=== PATIENT | female | born 1965 | race Two or more races ===

== ENCOUNTER 2025-10-14 03:27 | Inpatient (IN) | payer MEDICAID, OTHER ==
[~2025-10-14] VITALS: Ht 160 cm; Wt 65.0 kg
[2025-10-14] VITALS (20 sets, daily range): BP systolic 81–164; BP diastolic 48–86; PULSE 79–99; RESP 15–28; TEMP 97.4–98.4; O2SAT 93–100
--- NOTE | 2025-10-14 03:34 | ELECTROCARDIOGRAPH REPORT ---
[facility] Test Date: 2025-10-14 Test Time: 03:33:21 Pat Name: SENTHIL VAZQUEZ Department: EMERGENCY ROOM Room: [place] [address] Gender: F [employer]: RAEANN : 1965 Requested By: SAGE LIGHT Order Number: [id number] Reading MD: Dr. Domingo Blackwood Measurements Intervals [place] Rate: 87 P: -13 DC: 202 QRS: -24 QRSD: 91 T: 35 QT: 357 QTc: 430 Interpretive Statements Sinus rhythm Inferior infarct, old Lateral leads are also involved Electronically Signed On 10-15-2025 21:14:[address] Domingo Blackwood Please click the below link to view image of tracing.
--- NOTE | 2025-10-14 03:57 | Physician Documentation ---
History of Present Illness ~ Chief Complaint: Chest Pain Stated Complaint: CARDIAC ISSUES Time Seen by MD: 03:46 HPI Patient presents to the emergency room as a transfer from [facility] for concerns for chest pain. Patient was having chest pain and troponi ns were negative x3 at sending facility however that has some EKG changes that were concerning. They contacted Dr. Patterson, contract loader, who recommended transfer for further workup for chest pain. Troponins were negative x3 however giving the concerning story along with EKG changes Lovenox was administered. Medication Reconciliation Allergies: Coded Allergies: Sulfa (Sulfonamide Antibiotics) (Verified Allergy, Mild, HIVES, 10/14/25) codeine (Verified Allergy, Mild, HIVES, N/V, 10/14/25) Review of Systems ROS All review of systems negative except as per HPI Physical Exam Vital Signs: Temperature: 98.5, Source: Oral, Heart Rate: 98, Respiratory Rate: 14, BP: 121/69, Pulse Oximetry: 94, Weight: 65.000 Oxygen Flow Rate: 0 Physical Exam General: Patient is awake, alert, oriented x4 in no acute distress Head: Normocephalic and atraumatic. Eyes: Conjunctival normal. EOMI. PERRL. ENT: Mucous membranes moist. Neck: Supple, trachea is midline. Chest: Clear to auscultation bilaterally without rales, rhonchi, or wheezes. There is no accessory muscle use or retractions. Cardiac: RRR without murmurs, gallops, or rubs. Progress Results/Orders Results/Orders Orders - DEEJAY GIBSON MD Cbc/Diff (10/14/25 03:47) BMP (10/14/25 03:47) Hs Troponin I W Calculations (10/14/25 03:47) Completed Orders - DEEJAY GIBSON MD Electrocardiogram (10/14/25 03:30) Vital Signs 10/14/25 03:31 Temp 98.5 Pulse 98 Resp 14 B/P (MAP) 121/69 Pulse Ox 94 O2 Flow Rate 0 EKG/XRAY/CT/US/VASC/MRI EKG : Additional Comment EKG interpreted by myself shows time of 0333, rate 87, sinus rhythm, left axis deviation, nonspecific ST-T changes Medical Decision Making Additional information obtaine: other Findings Patient presents to the emergency room with chest pain with EKG changes sent from [facility]. We will admit patient for further analysis/investigation. Heart Score: 5 Differential Dx:Considerations: Include: angina, aortic dissection, chest wall pain, cholelithiasis, CHF, costochondritis, esophageal reflux/spasm, gastritis, herpes zoster, myocardial infarction, pericarditis, pleuritis, pancreatitis, pneumonia, pneumothorax, pulmonary embolus, other Departure Admitted to Inpatient Unit: yes, to hospitalist Impression: Primary Impression: Chest pain Condition: Guarded Referrals: NO PRIMARY CARE PROVIDER (PCP) Critical Care Note Total Time (mins): 30 Critical Care Note The very real possibility of a deterioration of this patient's condition required the highest level of my preparedness for sudden, emergent intervention. I provided critical care services, which included medication orders, frequent reevaluations of the patient's condition and response to treatment, ordering and reviewing test results, and discussing the case with various consultants. Excludes time spent performing separately billable procedures. The critical care time associated with the care of the patient was 30 minutes not counting pr ocedures Signature Scribe Signature: No scribe Attestation: The note accurately reflects work and decisions made by me.Deejay Gibson MD 10/14/25 03:57 DEEJAY GIBSON MD Oct 14, 2025 03:57
[2025-10-14] MEDS ORDERED: magnesium sulf-water 4G/100mL 100 ML IV PRN (04:20)
[2025-10-14] MEDS ORDERED: magnesium Cl slow-release 64mg tablet PO PRN (04:20)
[2025-10-14] MEDS ORDERED: magnesium sulf-water 2g/50mL 50 ML IV PRN (04:20)
[2025-10-14] MEDS ORDERED: potassium Cl 40MEQ/1/2NS 520ml 520 ML IV PRN (04:20)
[2025-10-14] MEDS ORDERED: potassium Cl 20 mEq SR tablet PO PRN ×2 (04:20)
[2025-10-14] MEDS ORDERED: mag hydrox/Alum hydrox/simeth 30ml oral suspension PO PRN (04:20)
[2025-10-14] MEDS ORDERED: HEPARIN DRIP-CARDIAC**PHARMACIST-TO-DOSE IV ONE (04:20)
[2025-10-14] MEDS ORDERED: magnesium hydroxide 30ml (MOM) UD suspension PO PRN (04:20)
[2025-10-14] MEDS ORDERED: ondansetron/PF 4mg/2ml inj IV PRN (04:20)
--- NOTE | 2025-10-14 04:32 | HISTORY AND PHYSICAL-Residence ---
History & Physical Providers to CC Resident Creating Document: JONATHAN RODAS, RES CC: KERMIT MISTRY MD ~ History of Present Illness Reason for Admit\Complaint: chest pain History of Present Illness 60-year-old female with PMH of HTN HLD presented the ED as a transfer from [facility] in view of substernal chest pain that started two days ago. Patient states that she has severe chest pain that feels like her bones breaking with a severity of 10/10 present in the substernal location with radiation to the tongue neck in between the scapula. Patient states the chest pain is worse on exertion does not relieve with rest. Patient had received nitroglycerin, nitro paste and morphine that has minimal relief. Patient denies decreasing chest pain or leaning forward. Patient has increased chest pain on taking deep inspiration. Patient's chest pain associated with shortness of breaths and nausea. Patient denies diaphoresis palpitations dizziness loss of consciousness. At [facility], patient received two tablets of nitro, nitro paste and morphine, and one full dose of aspirin. Patient initially received Lovenox at full dose. Troponins at the outside hospital has been negative The EKG at [facility] showed ischemic changes in the lateral leads. Patient's D-dimer HD outside hospital is minimally elevated and corrected for age to be normal Allergies: Coded Allergies: Sulfa (Sulfonamide Antibiotics) (Verified Allergy, Mild, HIVES, 10/14/25) codeine (Verified Allergy, Mild, HIVES, N/V, 10/14/25) Past Medical History Past Medical History HTN HLD Asthma GERD Bilateral sciatica Allergic rhinitis Bilateral knee pain Obesity Osteoarthritis Rheumatoid arthritis Sleep apnea Past Surgical History Surgical History Comment Right knee replacement Past Social History Social History Comment Patient denies smoking cigarettes, marijuana, illicit drugs, alcohol use Primary care doctor is at [facility] Constitutional: No fever, chills, dizziness, weight gain or loss Eyes: No pain, erythema, discharge, blurring of vision ENT: No sore throat, epistaxis, tinnitus Cardiovascular: reports Shortness of breath. Chest pressure, chest discomfort, no palpitations, syncope, lower extremity edema, paroxysmal nocturnal dyspnea Respiratory: No Shortness of breath and cough present, No hemoptysis Gastrointestinal: Normal appetite. No nausea, vomiting, diarrhea, constipation, hematemesis, abdominal pain, bloating, melena or fresh blood Musculoskeletal: No chronmic edema. Integumentary: No change in skin, hair, nails. No swelling, bruising, abrasions Neurologic: No headache, neck pain, numbness or tingling of the extremities, weakness Psychiatric: No delusions, depression, loss of interest in normal activity or change in sleep pattern, hallucinations, suicidal ideations Endocrine: No fatigue, weakness, polydipsia, polyuria, change in appetite, heat or cold intolerance, sweating, dry skin Exam Vitals: Vital Signs Date Time Temp Pulse Resp B/P (MAP) Pulse Ox O2 Delivery O2 Flow Rate FiO2 10/14/25 04:06 10/14/25 03:31 98.5 98 14 94 0 General: General: Alert, awake, oriented, not in acute distress HEENT: PERRLA, no icterus, pallor, lymphadenopathy, carotid bruit Respiratory system: Bilateral vesicular breath sounds heard, no adventitious breath sounds CVS: S1-S2 heard, no murmurs/rubs/gallop GI: Soft, nontender, no organomegaly, no guarding/rigidity, bowel sounds present Neuro: No focal neurological deficits present Mental status exam: alert and consciousness, orientation, memory, speech - Cranial nerve test: Cranial nerves 2-12 intact - Motor system: Nutrition, Tone 3+, Power 5/5, no involuntary movements - Sensory system: Intact - Reflex testing: Biceps, triceps and knee reflexes 2+ - Cerebellar: Normal Extremities: A surgical scar present in the right knee, tenderness of the right lower extremity Skin: Warm and dry, dilated veins of the bilateral lower extremities, multiple petechiae present in bilateral upper extremities Advance Care Planning Advanced Care plannin - 30 Minutes (I spent 20 minutes discussing various resuscitative measures and the patient decided to be DNR) Additional Plan Assessment: A 60-year-old female with a past medical history of HTN HLD presented to the ED as a transfer in view of characteristic cardiac chest pain and ischemic changes with no elevation of troponins. Patient is admitted for the evaluation and management of unstable angina, ACS work up Plan: Unstable angina ACS workup EKG: ST changes in one, aVL, V5 V6 Follow up with echo, lipid panel, A1c Patient received full dose of Lovenox at the outside hospital past midnight 70 mg Lovenox subcutaneous b.i.d. Patient received one full dose of aspirin at the outside hospital, started on aspirin 81 mg Patient is started on 80 mg of atorvastatin Nitroglycerin 0.4 mg sublingually p.r.n. for chest pain, nitro patch, morphine for intractable pain Cardiology consult in a.m., possible cardiac catheterization Possible new onset heart failure Chest x-ray: Bilateral pleural effusions with cardiomegaly IV Lasix 40 mg one time dose given Titrate Lasix as required Consider optimization with GDM T Follow up with echo Possible DVT Although the D-dimer is mildly elevated and corrected for age Patient has tenderness of right lower extremity concerning for DVT Follow up with ultrasound of the right lower extremity Mild leukocytosis Pneumonia, less likely Probably reactive Follow up with procalcitonin, COVID, flu test, urinalysis HTN Currently soft blood pressures Hold antihypertensives HLD Follow up with lipid panel Continue atorvastatin 80 mg once daily Asthma, not in acute exacerbation DuoNeb p.r.n. q.4h Osteoarthritis Rheumatoid arthritis Outpatient follow up Pain management GERD IV Protonix 40 mg daily Possible obstructive sleep apnea Outpatient sleep study CPAP at night daily Code status: DNR Diet: NPO DVT prophylaxis: Lovenox Disposition: Admit to PCU, follow up with echo Jonathan Rodas MD Internal Medicine, PGY 2 Pt was seen and discussed with the resident team Agree with assessment and plan thank you Date of Service: Oct 14, 2025 Billing Provider: KERMIT MISTRY MD, SIVA, RES Oct 14, 2025 04:32 KERMIT MISTRY MD Oct 14, 2025 18:13
[2025-10-14 04:42] LABS: MEAN PLATELET VOLUME 6.9 FL (7.4-10.4); RED CELL DISTRIBUTION WIDTH 14.5 % (11.5-14.5)
[2025-10-14 04:46] LABS: CREATININE 0.83 MG/DL (0.40-0.90); TOTAL CARBON DIOXIDE 25.3 MMOL/L (24-32); eCRCL 58 ML/MIN; eGFR 70 ML/MIN
[2025-10-14 04:48] LABS: APTT 34 SECONDS (22-32); INR 1.0 INR
--- NOTE | 2025-10-14 04:56 | RADIOLOGY REPORT ---
CHEST RADIOGRAPH INDICATION: acs TECHNIQUE: Single frontal view of the chest was obtained COMPARISON: XR CHEST 2 VIEWS on DOS: 10/13/25 FINDINGS: Lines and Tubes: None Lungs: Right basilar atelectasis. No evidence of focal consolidation. Pleura: No effusion. No pneumothorax. Cardiomediastinal contours: Cardiomegaly. Bones: Unremarkable IMPRESSION: 1. Cardiomegaly. 2. Right basilar atelectasis.
[2025-10-14] MEDS ORDERED: ipratropium/albuterol 3ml nebule NEB PRN (05:35)
[2025-10-14] MEDS: furosemide 10 MG/1 ML 10ml inj IV ONE (06:14)
[2025-10-14] MEDS: K and/or MAG REPLACEMENT MC SCH (08:00)
[2025-10-14] MEDS: docusate sod 100mg capsule PO SCH (09:09)
[2025-10-14] MEDS: aspirin 81mg, enteric-coated 1 TAB TABLET.DR PO SCH (09:09)
--- NOTE | 2025-10-14 09:14 | VASCULAR REPORT ---
TECHNIQUE: Real-time ultrasound imaging, with color Doppler and compression of the right common femoral vein, femoral vein, greater saphenous vein, and popliteal vein. INDICATION: Right leg pain COMPARISON: None FINDINGS: There is normal compressibility and flow augmentation in all of the imaged deep veins. There are no filling defects. IMPRESSION: No evidence of DVT in the right lower extremity
[2025-10-14 09:39] LABS: PRO BRAIN NATRIURETIC PEPTIDE 614 PG/ML (0-125)
[2025-10-14] MEDS ORDERED: regadenoson 0.4mg/5ml syringe IV PRN (11:55)
[2025-10-14] MEDS ORDERED: metoprolol tartrate 1mg/ml inj IV PRN (11:55)
[2025-10-14] MEDS ORDERED: aminophylline 250mg/10ml inj. IV PRN (11:55)
[2025-10-14] MEDS ORDERED: enoxaparin 30mg/0.3ml syringe SUBCUT SCH ×2 (12:00→14:06)
[2025-10-14] MEDS ORDERED: enoxaparin 40mg/0.4ml syringe SQ SCH (12:00)
[2025-10-14] MEDS: enoxaparin 40mg/0.4ml syringe SUBCUT SCH (15:46)
[2025-10-14] MEDS: enoxaparin 30mg/0.3ml syringe SUBCUT SCH (15:47)
--- NOTE | 2025-10-14 18:33 | ELECTROCARDIOGRAPH REPORT ---
[facility] Test Date: 2025-10-14 Test Time: 18:31:43 Pat Name: SENTHIL VAZQUEZ Department: [facility] 3S Patient ID: [facility]-[id number] Room: [place] [address] A Gender: F Company Marker: : 1965 Requested By: LUTHER HORNER Order Number: [id number] Reading MD: Dr. ANAHI Shah Measurements Intervals [place] Rate: 93 P: 1 [place]: 184 QRS: 39 QRSD: 86 T: 7 QT: 343 QTc: 427 Interpretive Statements Sinus rhythm Inferolateral ST-elevation, inferior Q-waves present Lateral leads are also involved. Recommend clinical correlation Electronically Signed On 10-15-2025 13:18:[address] ANAHI Shah Please click the below link to view image of tracing.
[2025-10-14] MEDS ORDERED: HYDR-3717 (19:18)
[2025-10-14] MEDS ORDERED: LISI1TAB49 PO (19:18)
[2025-10-14] MEDS ORDERED: ALBUTEROL (19:18)
[2025-10-14] MEDS ORDERED: ZOLPIDEM (19:18)
[2025-10-14] MEDS ORDERED: MAGN400T52 PO (19:18)
[2025-10-14] MEDS ORDERED: FERR-106 PO (19:18)
[2025-10-14] MEDS ORDERED: RISP-32 PO (19:18)
[2025-10-14] MEDS: PERFLUTREN PROTEIN-A MICROSPHR (Optison) 0.22 MG/ML 3ML VIAL IV ONE (22:06)
[2025-10-15] VITALS (23 sets, daily range): BP systolic 76–122; BP diastolic 38–75; PULSE 72–107; RESP 16–26; TEMP 96.9–99.1; O2SAT 93–98
[2025-10-15 07:04] LABS: MEAN PLATELET VOLUME 6.9 FL (7.4-10.4); RED CELL DISTRIBUTION WIDTH 14.6 % (11.5-14.5)
[2025-10-15 07:33] LABS: CHOL/HDL RATIO 2.9 (0.00-4.99); CREATININE 0.73 MG/DL (0.40-0.90); LDL CHOLESTEROL 86 MG/DL (50-100); TOTAL CARBON DIOXIDE 24.4 MMOL/L (24-32); eCRCL 66 ML/MIN; eGFR 81 ML/MIN
[2025-10-15] MEDS ORDERED: heparin 10,000 units/1 ML INJ IV PRN (09:25)
--- NOTE | 2025-10-15 10:04 | PROGRESS NOTE- Residence ---
Progress Note - Resident Providers to CC Resident Creating Document: WHITNEY PLASENCIA RES ~ Antibiotic Timeout Antibiotic Ordered?: No Subjective Patient was seen and examined at the bedside today. No acute overnight events recorded. Patient says she still has little bit of chest pain present. Objective Vital Signs Date Time Temp Pulse Resp B/P (MAP) Pulse Ox O2 Delivery O2 Flow Rate FiO2 10/15/25 08:00 16 94 Room Air 10/15/25 07:00 96.9 100 97/52 (67) 10/14/25 20:00 2.0 10/14/25 17:55 28 Result Diagram: 10/15/25 0641 10/15/25 0641 General: Alert, awake, oriented, not in acute distress HEENT: PERRLA, no icterus, pallor, lymphadenopathy, carotid bruit Respiratory system: Decreased breath sounds on the right side , vesicular breath sounds heard, no adventitious breath sounds CVS: S1-S2 heard, no murmurs/rubs/gallop GI: Soft, nontender, no organomegaly, no guarding/rigidity, bowel sounds present Neuro: No focal neurological deficits present Extremities: A surgical scar present in the right knee. Skin: Warm and dry, dilated veins of the bilateral lower extremities, multiple petechiae present in bilateral upper extremities Coagulation Studies Laboratory Tests Test 10/14/25 04:19 Prothrombin Time 10.1 SECONDS (9.0-12.0) INR International Normalized Ratio 1.0 INR Activated Partial Thromboplast Time 34 SECONDS (22-32) H Coagulation Comments Plan Plan NSTEMI ACS workup EKG: No acute ST elevations depressions Echo shows LVEF of 70-75% Patient complained of chest pain last evening, elevated troponin level of 612, down trended to 462 Patient to undergo a Lexiscan today Patient on heparin drip Patient on nitroglycerin patch Morphine 1 mg q.4h p.r.n., tramadol 50 mg q.8h p.r.n. Atorvastatin 80 mg daily, aspirin 81 mg daily Cardiology has been consulted Congestive heart failure with preserved ejection fraction Chest x-ray: Bilateral pleural effusions with cardiomegaly IV Lasix 40 mg one time dose given Patient is started on Lasix 20 mg b.i.d. Started patient on Coreg 3.125 mg We will titrate medications as needed, currently patient recording soft blood pressures DVT ruled out Although the D-dimer is mildly elevated and corrected for age Lower extremity vascular ultrasound negative for DVT Mild leukocytosis resolved Probably reactive HTN Currently soft blood pressures Hold antihypertensives HLD Lipid panel within the normal range Continue atorvastatin 80 mg once daily Asthma, not in acute exacerbation DuoNeb p.r.n. q.4h Osteoarthritis Rheumatoid arthritis Outpatient follow up Pain management GERD IV Protonix 40 mg daily Possible obstructive sleep apnea Outpatient sleep study CPAP at night daily Code status: DNR Diet: NPO DVT prophylaxis: Heparin Whitney Plasencia PGY-1 Date of Service: Oct 15, 2025 Billing Provider: LUTHER HORNER MD Common Visit Codes: [id number] INP/OBS CARE(HIGH) WHITNEY PLASENCIA, RES Oct 15, 2025 10:04 LUTHER HORNER MD Oct 16, 2025 17:45
[2025-10-15] MEDS: heparin 10,000 units/1 ML INJ IV ONE (10:16)
[2025-10-15] MEDS: heparin 25,000 UNIT/250ml bag 250 ML IV PRN (10:17)
[2025-10-15] MEDS: HEPARIN DRIP-CARDIAC**PHARMACIST-TO-DOSE IV ONE (10:17)
[2025-10-15] MEDS: MESSAGE TO NURSING IV ONE (10:20)
[2025-10-15 11:15] LABS: INR 1.0 INR
[2025-10-15 11:39] LABS: APTT 38 SECONDS (22-32)
--- NOTE | 2025-10-15 11:56 | RADIOLOGY REPORT ---
CHEST RADIOGRAPH INDICATION: hx of bilateral pleural effusions TECHNIQUE: Single frontal view of the chest was obtained COMPARISON: DI CHEST,SINGLE VIEW on DOS: 10/14/25, XR CHEST 2 VIEWS on DOS: 10/13/25 FINDINGS: Lines and Tubes: None Lungs: No focal consolidation. Pleura: Small bilateral pleural No pneumothorax. Cardiomediastinal contours: Cardiomegaly Bones: No acute osseous abnormality. IMPRESSION: Small bilateral pleural effusions. Cardiomegaly with CHF
[2025-10-15] MEDS: normal saline 1000ml 1,000 ML IV SCH (12:08)
[2025-10-15] MEDS: regadenoson 0.4mg/5ml syringe IV ONE (14:08)
--- NOTE | 2025-10-15 15:33 | CONSULTATION REPORT ---
Cardiac Consultation Report Providers to CC CC: BYRON CLAY MD ~ Progress Note: 60yo woman with HTN, HLD, Obesity admitted with CP x 2 days. States sporadic, lasted consistently for 2 days, resolved today with extra morphine. Subjective Subjective CP resolved since this AM. Objective Vitals Vital Signs Date Time Temp Pulse Resp B/P (MAP) Pulse Ox O2 Delivery O2 Flow Rate FiO2 10/15/25 14:26 100 16 112/67 93 Room Air 10/15/25 11:00 98.4 10/14/25 20:00 2.0 10/14/25 17:55 28 Lab Results: 10/15/25 0641 10/15/25 0641 Objective GENERAL: Awake, alert, NAD CV: reg rhythm, normal rate. No murmurs LUNGS: CTAB GI: +BS, soft, non-tender. EXT: 2+ radial pulses, no edema PSYCH: cooperative Coagulation Studies Laboratory Tests Test 10/15/25 10:40 Prothrombin Time 10.5 SECONDS (9.0-12.0) INR International Normalized Ratio 1.0 INR Activated Partial Thromboplast Time 38 SECONDS (22-32) H Coagulation Comments Problem\Assessment\Plan Problems/Diagnosis: (1) Chest pain Assessment & Plan: Patient with 2 days of consistent CP, now resolved. Trop mildly elevated. TTE with preserved LVEF. MPI with fixed inferior defect. EKG with inferior Q-waves. --Cont ASA 81mg QD --Cont Coreg 3.125mg BID --Cont Atorva 80mg QHS EVELINA CLAY MD Oct 15, 2025 15:33
--- NOTE | 2025-10-15 15:44 | RADIOLOGY REPORT ---
Reason for study/Clinical History: chest pain Comparison Study: None Myocardial Perfusion Study with SPECT TECHNIQUE: The patient received an intravenous injection of 8.7 mCi of technetium-99m Sestamibi while at rest. After a short delay, SPECT tomographic images of the heart were obtained. The patient then went to the stress lab where they received an intravenous Lexiscan utilizing standard protocol. 33.1 mCi of technetium-99m Sestamibi was injected intravenously immediately after the start of the infusion. Gated SPECT tomographic images of the heart were acquired and processed. FINDINGS: Rotating planar images show no significant attenuation artifact. The left ventricular size is within normal limits. Stress tomographic images demonstrate normal perfusion. Resting tomographic images demonstrate a similar pattern. Gated portion of the study shows normal wall motion and myocardial thickening. The left ventricular ejection fraction is 69 %. (normal greater than 50%) IMPRESSION: Normal left ventricular size, wall motion, and function, without evidence of infarction or of myocardium at ischemic risk.The left ventricular ejection fraction is 69 %.
[2025-10-15] MEDS ORDERED: MESSAGE TO NURSING IV ONE (17:05)
--- NOTE | 2025-10-15 17:35 | CARDIOLOGY REPORT ---
APPROVED REPORT EXAM: Comprehensive 2D, Doppler, and color-flow Echocardiogram. Patient Location: 3025 A Blood Pressure: 82/50 mmHg Heart Rate: 81 bpm Rhythm: SINUS Indications CORONARY ARTERY DISEASE 08/01 CHEST PAIN Binitrotoluene Operator: none Previous echo: none 2D Dimensions IVSd 1.2 (0.7-1.1cm) LVDd 4.0 cm PWd 1.0 (0.7-1.1cm) IVSs 1.6 (0.8-1.2cm) LVDs 2.0 (2.5-4.0cm) PWs 1.3 (0.8-1.2cm) LVOT Diameter 2.08 (1.8-2.4cm) LVEF(%) 81.1 (>50%) Ao Asc Diam. 3.20 cm FS (%) 49.2 % SV 57.5 ml CO 6.7 L/min M-Mode Dimensions Left Atrium(MM) 2.49 (2.5-4.0cm) IVSd 0.99 (0.7-1.1cm) LVDd 4.76 (4.0-5.6cm) Aortic Root 3.37 (2.2-3.7cm) PWd 0.84 (0.7-1.1cm) Aortic Cusp Exc 2.12 (1.5-2.0cm) IVSs 1.46 cm MV EPSS 0.4 (<0.5cm) LVDs 2.49 (2.0-3.8cm) FS (%) 48 % PWs 1.32 cm ESV(Teich) 22.1 ml LVEF(%) 79 (>50%) Aortic Valve LVOT VTI 17.47 cm LVOT Peak Nahid. 94.6 cm/s Mitral Valve MV E Velocity 83.7 cm/s MV Peak Gr. 3 mmHg MV DECEL TIME 212 ms MV A Velocity 65.1 cm/s MV PHT 48 ms E/A Ratio 1.3 MVA (PHT) 4.58 cm2 MV VMax 86.3 cm/s TDI Medial E' P. V 11.13 cm/s E/Medial E' 7.5 Tricuspid Valve TR P. Velocity 184 cm/s TR Peak Gr. 14 mmHg Pulmonary Vein S1 Velocity 41.3 cm/s D2 Velocity 31.1 cm/s PVa Velocity 23.5 cm/s PVa Duration 132 msec LEFT VENTRICLE Normal LV size and wall thickness. Overall systolic function is hyperdynamic. LVEF is 70-75%. RIGHT VENTRICLE RV is normal size and function. ATRIA LA size is normal. AORTIC VALVE Trileaflet AV appears mildly sclerotic without stenosis or insufficiency by color and spectral flow Doppler. MITRAL VALVE Mild MV annular calcification without stenosis. Trace regurgitation by color and spectral flow Doppler. TRICUSPID VALVE TV appears structurally normal with trace regurgitation by color and spectral flow Doppler. PULMONIC VALVE Normal PV without stenosis, physiologic insufficiency by color and spectral flow Doppler. GREAT VESSELS Aortic root is normal in size. Ascending aorta is normal in size. PERICARDIUM Normal pericardium. No effusion. Other Information Study Quality: Adequate Conclusion Normal LV size and wall thickness. Overall systolic function is hyperdynamic. LVEF is 70-75%. RV is normal size and function. LA size is normal. Trileaflet AV appears mildly sclerotic without stenosis or insufficiency by color and spectral flow Doppler. Mild MV annular calcification without stenosis. Trace regurgitation by color and spectral flow Doppler. TV appears structurally normal with trace regurgitation by color and spectral flow Doppler. Normal pericardium. No effusion.
[2025-10-15] MEDS ORDERED: ACET-1008 PO (17:36)
[2025-10-15] MEDS ORDERED: LISI10TA27 PO (17:36)
[2025-10-15] MEDS ORDERED: COR3.125T PO (17:36)
[2025-10-15] MEDS: HYDROcodone/acetaminophen 5mg/325mg tablet PO PRN (18:09)
[2025-10-15] MEDS ORDERED: ATOR20TA66 PO (18:21)
[2025-10-15] MEDS ORDERED: ASPI-1071 PO (18:21)
--- NOTE | 2025-10-15 18:53 | DISCHARGE SUMMARY-Residence ---
Discharge Summary Providers to CC Resident Creating Document: WHITNEY JOY RES ~ Discharge Summary Admission Diagnosis: ACS Hospital Course DATE OF ADMISSION: 10/14/25 DATE OF DISCHARGE: 10/15/25 Imaging- Vascular ultrasound No evidence of DVT in the right lower extremity Chest x-ray- 1. Cardiomegaly. 2. Right basilar atelectasis. Echocardiogram- Normal LV size and wall thickness. Overall systolic function is hyperdynamic. LVEF is 70-75%. RV is normal size and function. LA size is normal. Trileaflet AV appears mildly sclerotic without stenosis or insufficiency by color and spectral flow Doppler. Mild MV annular calcification without stenosis. Trace regurgitation by color and spectral flow Doppler. TV appears structurally normal with trace regurgitation by color and spectral flow Doppler. Normal pericardium. No effusion. Lexiscan- Normal left ventricular size, wall motion, and function, without evidence of infarction or of myocardium at ischemic risk.The left ventricular ejection fraction is 69 %. Discharge Diagnosis\Comment: NSTEMI Congestive heart failure with preserved ejection fraction DVT ruled out Mild leukocytosis resolved HTN HLD Asthma, not in acute exacerbation Osteoarthritis Rheumatoid arthritis GERD obstructive sleep apnea Operations\Procedures: None Consultants: Cardiology Complications: None Condition on DC: Stable New Medications: Lisinopril (Lisinopril) 10 Mg Tablet 10 MG PO DAILY for 30 Days, #30 TAB Aspirin (Ecotrin*) 81 Mg Tablet.dr 1 TAB PO DAILY for 30 Days, #30 TAB.SR Atorvastatin Calcium (Atorvastatin Calcium) 20 Mg Tablet 80 MG PO DAILY for 30 Days, #30 TAB Carvedilol (Carvedilol) 3.125 Mg Tablet 3.125 MG PO BID for 30 Days, #60 TAB Changed Medications: Acetaminophen (Tylenol) 325 Mg Tablet 1 TAB PO Q8H PRN for pain or fever for 10 Days, #30 TAB (Changed from: QDAY PRN; 30) Continued Medications: [Albuterol] () Ferrous Sulfate (Ferrous Sulfate) 325 Mg (65 Mg Iron) Tablet 1 TAB PO DAILY Hydroxyzine Hcl* (Atarax*) 10 Mg Tablet Magnesium Oxide (Magnesium Oxide) 400 Mg Tablet 1 TAB PO DAILY Risperidone (Risperidone) 2 Mg Tablet 1 TAB PO HS [Zolpidem] () Discontinued Medications: Lisinopril/Hydrochlorothiazide (Lisinopril-Hctz 10-12.5 mg Tab) 10 Mg-12.5 Mg Tablet 1 TAB PO DAILY Discharge Summary: 60-year-old female with PMH of HTN HLD presented the ED as a transfer from [place] in view of substernal chest pain that started two days ago. Patient states that she has severe chest pain that feels like her bones breaking with a severity of 10/10 present in the substernal location with radiation to the tongue neck in between the scapula. Patient states the chest pain is worse on exertion does not relieve with rest. Patient had received nitroglycerin, nitro paste and morphine that has minimal relief. Patient denies decreasing chest pain or leaning forward. Patient has increased chest pain on taking deep inspiration. Patient's chest pain associated with shortness of breaths and nausea. Patient denies diaphoresis palpitations dizziness loss of consciousness. At [place], patient received two tablets of nitro, nitro paste and morphine, and one full dose of aspirin. Patient initially received Lovenox at full dose. Troponins at the outside hospital has been negative The EKG at [place]'s showed ischemic changes in the lateral leads. Patient's D-dimer HD outside hospital is minimally elevated and corrected for age to be normal Hospital course- Patient was initially admitted for ACS workup. Patient's initial troponins were negative, EKG showed no acute ST elevations depressions. Patient was given morphine and nitroglycerin for pain control. However as patient was continuing to complain of chest pain, repeat troponins were ordered where 1 of them was elevated and then downtrended, patient underwent Lexiscan which was negative and Cardiology was consulted. However patients chest pain subsided and she was cleared by Cardiology for discharge. Patient's condition was stable at the time of discharge and she was discharged home. Vital Signs Date Time Temp Pulse Resp B/P (MAP) Pulse Ox O2 Delivery O2 Flow Rate FiO2 10/15/25 18:09 16 10/15/25 15:56 72 95 Room Air* 0 21 10/15/25 15:00 98.6 107/64 (78) Laboratory Tests Test 10/14/25 04:19 10/14/25 06:44 10/14/25 08:54 10/14/25 09:06 White Blood Count 12.5 X10'3 Red Blood Count 4.16 X10'6 Hemoglobin 12.6 g/dl Hematocrit 38.1 % Mean Corpuscular Volume 91.5 FL Mean Corpuscular Hemoglobin 30.2 PG Mean Corpuscular Hemoglobin Concent 33.0 g/dL Red Cell Distribution Width 14.5 % Platelet Count 374 X10'3 Mean Platelet Volume 6.9 FL Neutrophils (%) (Auto) 76.9 % Lymphocytes (%) (Auto) 16.1 % Monocytes (%) (Auto) 5.9 % Eosinophils (%) (Auto) 0.8 % Basophils (%) (Auto) 0.3 % Neutrophils # (Auto) 9.6 X10'3 Lymphocytes # (Auto) 2.0 X10'3 Monocytes # (Auto) 0.7 X10'3 Eosinophils # (Auto) 0.1 X10'3 Basophils # (Auto) 0.0 X10'3 CBC Comment Prothrombin Time 10.1 SECONDS INR International Normalized Ratio 1.0 INR Activated Partial Thromboplast Time 34 SECONDS Coagulation Comments Sodium Level 136 MMOL/L Potassium Level 3.5 MMOL/L Chloride Level 103 MMOL/L Carbon Dioxide Level 25.3 MMOL/L Anion Gap 8 Blood Urea Nitrogen 18 MG/DL Creatinine 0.83 MG/DL Estimated GFR/1.73 m2 70 ML/MIN BUN/Creatinine Ratio 21.7 Glucose Level 177 MG/DL Hemoglobin A1c 5.5 % Lactic Acid Level 1.8 MMOL/L Calcium Level 8.2 MG/DL Magnesium Level 1.9 MG/DL Troponin I High Sensitivity 11 ng/L 15 ng/L Albumin 3.0 G/DL 2.9 G/DL Chemistry Comments Procalcitonin < 0.05 NG/ML Troponin I High Sens Percent Delta 36 % Troponin I Hi Sens Absolute Change 4 ng/L Total Bilirubin 1.0 MG/DL Direct Bilirubin 0.3 MG/DL Aspartate Amino Transf (AST/SGOT) 15 U/L Alanine Aminotransferase (ALT/SGPT) 32 U/L Alkaline Phosphatase 85 IU/L Pro-B-Type Natriuretic Peptide 614 PG/ML Total Protein 6.3 G/DL Globulin 3.4 G/DL Albumin/Globulin Ratio 0.9 Test 10/14/25 10:20 10/14/25 12:39 10/15/25 06:41 10/15/25 08:30 Troponin I High Sensitivity 13 ng/L 612 ng/L 462 ng/L Troponin I High Sens Percent Delta 13 % 4607 % 24 % Troponin I Hi Sens Absolute Change -2 ng/L 599 ng/L -150 ng/L Erythrocyte Sedimentation Rate 22 MM/HR White Blood Count 9.1 X10'3 Red Blood Count 3.85 X10'6 Hemoglobin 11.7 g/dl Hematocrit 35.1 % Mean Corpuscular Volume 91.1 FL Mean Corpuscular Hemoglobin 30.3 PG Mean Corpuscular Hemoglobin Concent 33.2 g/dL Red Cell Distribution Width 14.6 % Platelet Count 356 X10'3 Mean Platelet Volume 6.9 FL Neutrophils (%) (Auto) 74.6 % Lymphocytes (%) (Auto) 14.4 % Monocytes (%) (Auto) 9.9 % Eosinophils (%) (Auto) 0.8 % Basophils (%) (Auto) 0.3 % Neutrophils # (Auto) 6.8 X10'3 Lymphocytes # (Auto) 1.3 X10'3 Monocytes # (Auto) 0.9 X10'3 Eosinophils # (Auto) 0.1 X10'3 Basophils # (Auto) 0.0 X10'3 CBC Comment Sodium Level 139 MMOL/L Potassium Level 3.9 MMOL/L Chloride Level 106 MMOL/L Carbon Dioxide Level 24.4 MMOL/L Anion Gap 9 Blood Urea Nitrogen 17 MG/DL Creatinine 0.73 MG/DL Estimated GFR/1.73 m2 81 ML/MIN BUN/Creatinine Ratio 23.3 Glucose Level 149 MG/DL Calcium Level 8.7 MG/DL Magnesium Level 2.0 MG/DL Albumin 2.7 G/DL Triglycerides Level 57 MG/DL Cholesterol Level 158 MG/DL LDL Cholesterol 86 MG/DL HDL Cholesterol 55 MG/DL Cholesterol/HDL Ratio 2.9 Chemistry Comments Test 10/15/25 10:40 10/15/25 16:16 Prothrombin Time 10.5 SECONDS INR International Normalized Ratio 1.0 INR Activated Partial Thromboplast Time 38 SECONDS Coagulation Comments APTT (Heparin Protocol) 23 SECONDS Examination at the time of discharge- General: Alert, awake, oriented, not in acute distress HEENT: PERRLA, no icterus, pallor, lymphadenopathy, carotid bruit Respiratory system: Decreased breath sounds on the right side , vesicular breath sounds heard, no adventitious breath sounds CVS: S1-S2 heard, no murmurs/rubs/gallop GI: Soft, nontender, no organomegaly, no guarding/rigidity, bowel sounds present Neuro: No focal neurological deficits present Extremities: A surgical scar present in the right knee. Skin: Warm and dry, dilated veins of the bilateral lower extremities, multiple petechiae present in bilateral upper extremities Discharge medications- New Medications: Lisinopril 10 Mg Tablet Aspirin (Ecotrin*) 81 Mg Tablet. Atorvastatin Calcium 20 Mg Tablet Carvedilol 3.125 Mg Tablet Changed Medications: Acetaminophen (Tylenol) 325 Mg Tablet Continued Medications: [Albuterol] Ferrous Sulfate 325 Mg (65 Mg Iron) Tablet Hydroxyzine Hcl* (Atarax*) 10 Mg Tablet Magnesium Oxide 400 Mg Tablet Risperidone 2 Mg Tablet [Zolpidem] Discontinued Medications: Lisinopril/Hydrochlorothiazide (Lisinopril-Hctz 10-12.5 mg Tab) 10 Mg-12.5 Mg Tablet *Problems/Diagnosis: (1) Chest pain Status: Acute Total Time Spent on D/C: > 30 Minutes Date of Service: Oct 15, 2025 Billing Provider: LUTHER HORNER MD Common Visit Codes: 46014-CNP/OBS DISCH DAY >30min WHITNEY JOY, RES Oct 15, 2025 18:21 LUTHER HORNER MD Oct 16, 2025 17:44
[2025-10-16] MEDS ORDERED: pantoprazole 40mg Tablet.DR PO SCH (07:30)
== END 2025-10-15 18:50 | disposition home or self-care (01) | DRG 280 ==
LOC: ER 03:28 → ED HOLD 04:26 → PCU 3S 05:40
PROVIDERS: ADMIT Internal Medicine Critical Care Medicine; ATTEND Internal Medicine
PROC: 4A02XM4 Measurement of Cardiac Total Activity, External Approach (ICD-10-PCS; principal; 2025-10-15)
PROC: 3E033HZ Introduction of Radioactive Substance into Peripheral Vein, Percutaneous Approach (ICD-10-PCS; 2025-10-15)
DX: I21.4 Non-ST elevation (NSTEMI) myocardial infarction (principal); I50.31 Acute diastolic (congestive) heart failure; Z66 Do not resuscitate; I11.0 Hypertensive heart disease with heart failure; M06.9 Rheumatoid arthritis, unspecified; D72.829 Elevated white blood cell count, unspecified; K21.9 Gastro-esophageal reflux disease without esophagitis; E78.5 Hyperlipidemia, unspecified; G47.33 Obstructive sleep apnea (adult) (pediatric); Z88.2 Allergy status to sulfonamides; Z88.5 Allergy status to narcotic agent
CPT/HCPCS: 36415; 71045; 78452; 80048; 80061; 80076; 83036; 83605; 83735; 83880; 84145; 84484; 85025; 85610; 85651; 85730; 87040; 87081; 93005; 93017; 93306; 93971; 94760; 96374; 99291; A4615; A6258; A9500; G0378; J1200; J1644; J1650; J1938; J2270; J2470; J2785; J7030